=== PATIENT | male | born 1970 | race African-American/Black ===

== ENCOUNTER 2018-05-26 19:21 | Emergency (ER) | payer BC, OTHER ==
[~2018-05-26] VITALS: Ht 182.9 cm; Wt 104.3 kg
[~2018-05-26 19:21] MED LIST: AMLO5TAB7 PO; DOCU-109 PO; FURO40TA4 PO; HYDR-2758 PO; HYDR-2867 PO; INSU100I17 SQ; INSU100I27 SQ; ONDA4TAB10 SL; OXYC-323 PO
[2018-05-27] MEDS ORDERED: ASPIRIN 325 MG TABLET PO ONE
--- NOTE | 2018-05-27 00:31 | PHYS DOC ---
Past Medical History Past Medical History: Diabetes-Type II, Hypertension Past Surgical History: Appendectomy, Other Additional Past Surgical Histo: right ankle Alcohol Use: None Drug Use: None Adult General Chief Complaint Chief Complaint: LOWER EXTREMITY SWELLING HPI HPI Patient is a 48 year old [f__sex] who presents with [] Review of Systems Review of Systems Constitutional: Denies fever or chills [] Eyes: Denies change in visual acuity, redness, or eye pain [] HENT: Denies nasal congestion or sore throat [] Respiratory: Denies cough or shortness of breath [] Cardiovascular: No additional information not addressed in HPI [] GI: Denies abdominal pain, nausea, vomiting, bloody stools or diarrhea [] : Denies dysuria or hematuria [] Musculoskeletal: Denies back pain or joint pain [] Integument: Denies rash or skin lesions [] Neurologic: Denies headache, focal weakness or sensory changes [] Endocrine: Denies polyuria or polydipsia [] All other systems were reviewed and found to be within normal limits, except as documented in this note. Current Medications Current Medications Current Medications Medications (Trade) Dose Ordered Sig/Monik Start Time Stop Time Status Last Admin Dose Admin Aspirin (Trudy Aspirin) 325 mg 1X ONCE 05/27/18 00:00 05/27/18 00:02 DC 05/27/18 00:35 325 MG Bumetanide (Bumex) 0.5 mg 1X ONCE 05/27/18 02:15 05/27/18 02:16 DC 05/27/18 02:19 0.5 MG Potassium Chloride (Klor-Con) 40 meq 1X ONCE 05/27/18 02:15 05/27/18 02:16 DC 05/27/18 02:19 40 MEQ Sodium Chloride 1,000 ml @ 1,000 mls/hr 1X ONCE 05/27/18 01:45 05/27/18 02:44 Cancel Allergies Allergies Allergies Coded Allergies Type Severity Reaction Last Updated Verified No Known Drug Allergies 01/02/16 No Physical Exam Physical Exam Constitutional: Well developed, well nourished, no acute distress, non-toxic appearance. [] HENT: Normocephalic, atraumatic, bilateral external ears normal, oropharynx moist, no oral exudates, nose normal. [] Eyes: PERRLA, EOMI, conjunctiva normal, no discharge. [] Neck: Normal range of motion, no tenderness, supple, no stridor. [] Cardiovascular:Heart rate regular rhythm, no murmur [] Lungs & Thorax: Bilateral breath sounds clear to auscultation [] Abdomen: Bowel sounds normal, soft, no tenderness, no masses, no pulsatile masses. [] Skin: Warm, dry, no erythema, no rash. [] Back: No tenderness, no CVA tenderness. [] Extremities: No tenderness, no cyanosis, no clubbing, ROM intact, no edema. [] Neurologic: Alert and oriented X 3, normal motor function, normal sensory function, no focal deficits noted. [] Psychologic: Affect normal, judgement normal, mood normal. [] Current Patient Data Vital Signs Vital Signs Date Time Temp Pulse Resp B/P (MAP) Pulse Ox O2 Delivery O2 Flow Rate FiO2 05/26/18 22:30 98.5 103 16 219/120 (153) 96 Room Air 98.5 Lab Values Laboratory Tests Test 05/27/18 01:10 White Blood Count 10.5 x10^3/uL (4.0-11.0) Red Blood Count 3.49 x10^6/uL (4.30-5.70) L Hemoglobin 10.2 g/dL (13.0-17.5) L Hematocrit 30.3 % (39.0-53.0) L Mean Corpuscular Volume 87 fL (79-100) Mean Corpuscular Hemoglobin 29 pg (25-35) Mean Corpuscular Hemoglobin Concent 34 g/dL (31-37) Red Cell Distribution Width 14.1 % (11.5-14.5) Platelet Count 275 x10^3/uL (140-400) Neutrophils (%) (Auto) 66 % (31-73) Lymphocytes (%) (Auto) 23 % (24-48) L Monocytes (%) (Auto) 9 % (0-9) Eosinophils (%) (Auto) 2 % (0-3) Basophils (%) (Auto) 1 % (0-3) Neutrophils # (Auto) 6.9 x10^3uL (1.8-7.7) Lymphocytes # (Auto) 2.4 x10^3/uL (1.0-4.8) Monocytes # (Auto) 1.0 x10^3/uL (0.0-1.1) Eosinophils # (Auto) 0.2 x10^3/uL (0.0-0.7) Basophils # (Auto) 0.1 x10^3/uL (0.0-0.2) Prothrombin Time 13.5 SEC (11.7-14.0) Prothrombin Time INR 1.1 (0.8-1.1) Sodium Level 142 mmol/L (136-145) Potassium Level 2.8 mmol/L (3.5-5.1) *L Chloride Level 107 mmol/L (98-107) Carbon Dioxide Level 31 mmol/L (21-32) Anion Gap 4 (6-14) L Blood Urea Nitrogen 22 mg/dL (8-26) Creatinine 2.5 mg/dL (0.7-1.3) H Estimated GFR (Cockcroft-Gault) 33.5 BUN/Creatinine Ratio 9 (6-20) Glucose Level 181 mg/dL (70-99) H Calcium Level 8.5 mg/dL (8.5-10.1) Magnesium Level 1.9 mg/dL (1.8-2.4) Total Bilirubin 0.3 mg/dL (0.2-1.0) Aspartate Amino Transferase (AST) 21 U/L (15-37) Alanine Aminotransferase (ALT) 19 U/L (16-63) Alkaline Phosphatase 87 U/L (46-116) Creatine Kinase 373 U/L (39-308) H Creatine Kinase MB (Mass) 3.6 ng/mL (0.0-3.6) Creatine Kinase MB Relative Index 1.0 % (0-4) Troponin I Quantitative 0.017 ng/mL (0.000-0.055) QH-Uuh-L-Type Natriuretic Peptide 1188 pg/mL (0-124) H Total Protein 5.0 g/dL (6.4-8.2) L Albumin 1.5 g/dL (3.4-5.0) L Albumin/Globulin Ratio 0.4 (1.0-1.7) L Lipase 69 U/L (73-393) L Laboratory Tests 05/27/18 01:10 Laboratory Tests 05/27/18 01:10 EKG EKG @ 2339 Sinus tachycadia at 101bpm, nonspecific t wave inversion I-II, aVL, aVF, V4-V6, NO ST elevation Radiology/Procedures Radiology/Procedures PROCEDURE: VENOUS LOWER EXT BILATERAL Examination: Bilateral Lower Extremity Venous Doppler Ultrasound History: Bilateral lower extremity swelling Comparison: None Procedure: Martin scale, color flow 2D and spectal waveform analysis images are obtained with and without compression in the area of the common femoral vein, superficial femoral vein - femoral vein junction, main femoral vein (superficial femoral vein) and popliteal vein. Veins of the proximal calf are also imaged. Findings: There is normal duplex flow, color flow and compressibility of all visualized vein segments. No evidence of deep venous thrombus is present. Mild soft tissue edema identified in the bilateral lower legs. Impression: No evidence of DVT in the visualized bilateral lower extremity venous system. Electronically signed by: Nguyễn Villalobos MD (05/27/2018 12:35 AM) [facility] CXR 2 view (preliminary interpretation by ED physician): Right middle lobe opacification. Course & Med Decision Making Course & Med Decision Making Pertinent Labs and Imaging studies reviewed. (See chart for details) [] Dragon Disclaimer Dragon Disclaimer This electronic medical record was generated, in whole or in part, using a voice recognition dictation system. Departure Departure Impression: Primary Impression: Lower extremity edema Additional Impressions: Hypokalemia Pneumonia Disposition: 01 HOME, SELF-CARE Condition: STABLE Referrals: UNKNOWN PCP NAME (PCP) Patient Instructions: Edema, [id number], Hypokalemia, Pneumonia, Adult, Easy- to-Read, Potassium Content of Foods Additional Instructions: In addition to your potassium pills, please increase your diet to include foods that are rich in potassium. Scripts Azithromycin (ZITHROMAX) 250 Mg Tablet 1 PKG PO UD, #6 TAB Take 2 tablets on day 1 and then 1 tablet each day for the next 4 days as directed Prov: REGGIE FOWLER DO 05/27/18 Problem Qualifiers Additional Impressions: Pneumonia Pneumonia type: due to unspecified organism Laterality: right Lung location : middle lobe of lung Qualified Codes: J18.1 - Lobar pneumonia, unspecified organism REGGIE FOWLER DO May 27, 2018 00:31
--- NOTE | 2018-05-27 00:39 | RAD ---
Examination: Bilateral Lower Extremity Venous Doppler Ultrasound History: Bilateral lower extremity swelling Comparison: None Procedure: Martin scale, color flow 2D and spectal waveform analysis images are obtained with and without compression in the area of the common femoral vein, superficial femoral vein - femoral vein junction, main femoral vein (superficial femoral vein) and popliteal vein. Veins of the proximal calf are also imaged. Findings: There is normal duplex flow, color flow and compressibility of all visualized vein segments. No evidence of deep venous thrombus is present. Mild soft tissue edema identified in the bilateral lower legs. Impression: No evidence of DVT in the visualized bilateral lower extremity venous system. Electronically signed by: Nguyễn Villalobos MD (05/27/2018 12:35 AM) [facility]
[2018-05-27 01:22] LABS: BASO # 0.1 x10^3/uL (0.0-0.2); BASO % 1 % (0-3); EOS # 0.2 x10^3/uL (0.0-0.7); EOS % 2 % (0-3); HEMATOCRIT 30.3 % (39.0-53.0); HEMOGLOBIN 10.2 g/dL (13.0-17.5); LYMPH # 2.4 x10^3/uL (1.0-4.8); LYMPH % 23 % (24-48); MEAN CORPUSCULAR HEMOGLOBIN 29 pg (25-35); MEAN CORPUSCULAR HGB CONC 34 g/dL (31-37); MEAN CORPUSCULAR VOLUME 87 fL (79-100); MONO % 9 % (0-9); NEUT # 6.9 x10^3uL (1.8-7.7); NEUT % 66 % (31-73); PLATELET COUNT 275 x10^3/uL (140-400); RED BLOOD COUNT 3.49 x10^6/uL (4.30-5.70); RED CELL DISTRIBUTION WIDTH 14.1 % (11.5-14.5); WHITE BLOOD COUNT 10.5 x10^3/uL (4.0-11.0)
[2018-05-27 01:31] LABS: PROTHROMBIN TIME PATIENT 13.5 SEC (11.7-14.0)
[2018-05-27] MEDS ORDERED: IV NORMAL SALINE 1000ML BAG 1,000 ML IV ONE (01:45)
[2018-05-27 01:46] LABS: ALBUMIN 1.5 g/dL (3.4-5.0); ALBUMIN/GLOBULIN RATIO 0.4 (1.0-1.7); CALCIUM 8.5 mg/dL (8.5-10.1); CREATININE 2.5 mg/dL (0.7-1.3); GFR 33.5; MAGNESIUM 1.9 mg/dL (1.8-2.4); TOTAL BILIRUBIN 0.3 mg/dL (0.2-1.0)
[2018-05-27 01:56] LABS: POTASSIUM 2.8 mmol/L (3.5-5.1)
[2018-05-27] MEDS ORDERED: BUMETANIDE 1 MG/4 ML VIAL. IV ONE (02:15)
[2018-05-27] MEDS ORDERED: POTASSIUM CHLORIDE 20 MEQ TABLET.ER. PO ONE (02:15)
[2018-05-27] MEDS ORDERED: AZIT250T PO (02:51)
[2018-05-27 03:30] VITALS: BP 201/105
--- NOTE | 2018-05-27 04:31 | EKG ---
[facility] [address] [place] [address] Test Date: 2018-05-26 Test Time: 23:39:44 Pat Name: STEVE BAILON Department: Room: Gender: M [employer] Room Attendant: : 1970 Requested By: REGGIE FOWLER Order Number: [id number] Reading MD: Measurements Intervals [place] Rate: 101 P: 35 [place]: 136 QRS: 31 QRSD: 86 T: -177 QT: 332 QTc: 431 Interpretive Statements SINUS TACHYCARDIA ST & T ABNORMALITY, CONSIDER ANTEROLATERAL ISCHEMIA OR LEFT VENTRICULAR STRAIN INFEROLATERAL ISCHEMIA OR LEFT VENTRICULAR STRAIN ABNORMAL ECG RI6.01 No previous ECG available for comparison
--- NOTE | 2018-05-27 09:22 | RAD ---
Chest, 2 views, 05/27/2018: History: Shortness of breath Comparison is made to a study from 12/18/2015. The heart is at the upper limits of normal in size. There are moderate bibasilar pulmonary infiltrates, left greater than right. There are small pleural effusions. The upper lung coello are clear. IMPRESSION: Moderate basilar infiltrates and small pleural effusions, left greater than right. The findings suggest pneumonia, although basilar pulmonary edema is also a possibility.
== END 2018-05-27 03:30 | disposition home or self-care (01) ==
LOC: ER 19:21
DX: R60.0 Localized edema (principal); J18.1 Lobar pneumonia, unspecified organism; E87.6 Hypokalemia; E11.9 Type 2 diabetes mellitus without complications; I10 Essential (primary) hypertension; Z90.89 Acquired absence of other organs
CPT/HCPCS: 36415; 71046; 80053; 82553; 83690; 83735; 83880; 84484; 85025; 85610; 93005; 93970; 96374; 99285; J3490